=== PATIENT | born 2000 | race Caucasian/White ===

== ENCOUNTER 2022-09-08 16:20 | Emergency (ER) | payer OTHER, SELFPAY ==
[2022-09-08 16:47] VITALS: BP 103/53; PULSE 93; RESP 18; TEMP 36.8; O2SAT 100
--- NOTE | 2022-09-08 17:11 | ED.URI ---
HPI - URI/Sore Throat General Chief Complaint: Upper Respiratory Infection Stated Complaint: Sore Throat Time Seen by Provider: 09/08/22 17:11 Source: patient, RN notes reviewed and old records reviewed Mode of arrival: ambulatory Limitations: no limitations History of Present Illness HPI Narrative: 22-year-old female presents to the [facility] with complaints a sore throat as well as sinus congestion since yesterday. Had taken [id number] products yesterday and last night. States that she took her COVID tested for pain which she reports is negative. MD elicited complaint: sore throat Treatments prior to arrival: cold medicine Related Data Home Medications Medication Instructions Recorded Confirmed albuterol sulfate 90 mcg/actuation See Rx Instructions .Route 09/08/22 09/08/22 aerosol inhaler .COMPLEX PRN sob dextroamphetamine-amphetamine 10 10 mg PO BID 09/08/22 09/08/22 mg tablet fluticasone 100 mcg-salmeterol 50 1 inh inhalation BID 09/08/22 09/08/22 mcg/dose blistr powdr for inhalation (Advair Diskus) spironolactone 25 mg tablet 25 mg PO DAILY 09/08/22 09/08/22 sumatriptan succinate 50 mg tablet See Rx Instructions .Route .COMPLEX 09/08/22 09/08/22 testosterone cypionate 200 mg/mL See Rx Instructions .Route .COMPLEX 09/08/22 09/08/22 intramuscular oil topiramate 50 mg tablet 50 mg PO DAILY 09/08/22 09/08/22 tretinoin 0.05 % topical cream See Rx Instructions .Route .COMPLEX 09/08/22 09/08/22 Allergies Allergy/AdvReac Type Severity Reaction Status Date / Time No Known Allergies Allergy Verified 09/08/22 16:58 Review of Systems Review of Systems: All systems reviewed & are unremarkable except as noted in HPI and below Constitutional: Constitutional: Reports no additional constitutional complaints Eyes: Eyes: Reports no additional eye complaints ENT: Reports as per HPI and Reports sore throat Cardiovascular: Cardiovascular: Reports no additional cardiovascular complaints, Denies chest pain and Denies dyspnea Respiratory: Respiratory: Reports no additional respiratory complaints, Denies chest congestion, Denies cough and Denies dyspnea Gastrointestinal: Gastrointestinal: Reports no additional gastrointestinal complaints, Denies abdominal pain, Denies nausea and Denies vomiting Musculoskeletal: Musculoskeletal: Reports no additional musculoskeletal complaints Integumentary/Breasts: Skin/Breast: Reports system reviewed and no additional complaints, except as docu Neurologic: Reports system reviewed and no additional complaints, except as documented Psychiatric: Psychiatric: Reports no additional psychiatric complaints Allergic/Immunologic: Allergic/Immunologic: Reports no additional allergic/immunologic complaints PMFSH Comments At the time of my signature, I reviewed and agree with the nursing past medical, surgical, social, and family history. There is no relevant family history pertinent to the patient complaint. Exam Const: General: cooperative, healthy appearing, comfortable, no acute distress, well developed, alert and well nourished Nutritional Appearance: well nourished Orientation/consciousness: patient oriented x3 Limitations: no limitations HENMT: Head: normal to inspection Ears: hearing grossly normal bilaterally and external ears normal Face/Nose/Sinus: Normal external nose present, Normal nares present, Normal nasal mucous membranes and turbinates present and normal facial exam Face and sinus: normal facial exam Mouth: Yes Normal oral and palatal mucosa present, Yes lip normal and Yes moist mucous membranes Throat: posterior oropharynx normal and uvula midline Eyes: General: appearance normal, both eyes and all related structures Alignment and Position: alignment normal Periorbital: periorbital findings normal Pupils: Equal, round and reactive pupils present EOM: EOMs intact bilaterally Neck: Neck: normal visual inspection, full ROM, no lymphadenopathy and no meningeal
== END 2022-09-08 17:20 | disposition home or self-care (01) ==
PROVIDERS: Emergency Provider Nurse Practitioner
DX: J06.9 Acute upper respiratory infection, unspecified (principal); J45.909 Unspecified asthma, uncomplicated; F98.8 Other specified behavioral and emotional disorders with onset usually occurring in childhood and adolescence
CPT/HCPCS: 87081; 87880; 99213; G0463